=== PATIENT | female | born 1980 | race Caucasian/White ===

== ENCOUNTER 2016-12-23 14:19 | Emergency (ER) | payer OTHER ==
[~2016-12-23] VITALS: Ht 170.2 cm; Wt 111.6 kg
[2016-12-23 14:24] VITALS: BP 115/78; PULSE 104; RESP 17; TEMP 98.8; O2SAT 98
[2016-12-23 14:35] VITALS: BP 115/78; PULSE 104; RESP 16; TEMP 98.8; O2SAT 98
[2016-12-23] MEDS ORDERED: DEPO150I IM (14:39)
--- NOTE | 2016-12-23 15:11 | PD ---
HPI Chief Complaint: Back/ Neck Pain or Injury Time Seen by Provider: 14:59 Travel History International Travel<30 days: No Contact w/Intl Traveler<30days: No Traveled to known affect area: No History of Present Illness HPI 36-year-old female presents emergency department for evaluation of low back pain. Patient denies injury. Patient reports history of chronic low back pain. She reports his pain is similar. She reports she awoke last night as she rolled over in bed and felt pain in the back. The pain worsened today when she attempted to mow the lawn prompting her visit to come into the ER. She denies fever, chills, incontinence, saddle anesthesia, numbness/tingling/ weakness in lower extremities. She reports the pain is localized to the low back, nonradiating, constant. Pain is worse with movement and relieved with rest. Severity 8/10. She denies dysuria, urinary frequency or urgency. PFSH Past Medical History Anxiety: Yes Depression: Yes Tetanus Vaccination: > 5 Years Influenza Vaccination: No ?: Not LMP: on depo Ovarian Cysts: Yes (PCOS) Social History Alcohol Use: Yes (occas.) Tobacco Use: No Substance Use: No Allergies-Medications (Allergen,Severity, Reaction): Coded Allergies: Penicillins (Verified Allergy, Intermediate, rash, 12/23/16) Reported Meds & Prescriptions Reported Meds & Active Scripts Active Reported Depo-Provera Inj (Medroxyprogesterone Inj) 150 Mg/Ml Inj 150 Mg IM Q90D Review of Systems Except as stated in HPI: all other systems reviewed are Neg General / Constitutional: No: Fever Eyes: No: Visual changes HENT: No: Headaches Cardiovascular: No: Chest Pain or Discomfort Respiratory: No: Shortness of Breath Gastrointestinal: No: Abdominal Pain Genitourinary: No: Dysuria Physical Exam Narrative GENERAL: Alert, well-appearing female in no acute distress. Patient ambulating in the room stating was uncomfortable to sit or lie on the stretcher. SKIN: Focused skin assessment warm/dry. HEAD: Atraumatic. Normocephalic. EYES: Pupils equal and round. No scleral icterus. No injection or drainage. ENT: No nasal bleeding or discharge. Mucous membranes pink and moist. NECK: Trachea midline. No JVD. CARDIOVASCULAR: Regular rate and rhythm. No murmur appreciated. RESPIRATORY: No accessory muscle use. Clear to auscultation. Breath sounds equal bilaterally. GASTROINTESTINAL: Abdomen soft, non-tender, nondistended. Hepatic and splenic margins not palpable. MUSCULOSKELETAL: No obvious deformities. No clubbing. No cyanosis. No edema. BACK: No CVA tenderness. No rash. No point tenderness on palpation of the spine. Generalized pain and tenderness to the paraspinous muscles in lumbar spine. Negative Straight leg raise. NEUROLOGICAL: Awake and alert. No obvious cranial nerve deficits. Motor grossly within normal limits. Normal speech. Out of 5 strength in lower extremities. Normal sensation. PSYCHIATRIC: Appropriate mood and affect; insight and judgment normal. Data Data Last Documented VS Vital Signs Date Time Temp Pulse Resp B/P (MAP) Pulse Ox O2 Delivery O2 Flow Rate FiO2 12/23/16 14:35 98.8 104 16 115/78 (90) 98 Orders Orders Ketorolac Inj (Toradol Inj) (12/23/16 15:15) Orphenadrine Inj (Norflex Inj) (12/23/16 15:15) [facility] Medical Decision Making Medical Screen Exam Complete: Yes Emergency Medical Condition: Yes Differential Diagnosis Lumbar strain, herniated disc, Narrative Course 36-year-old female presents emergency department for evaluation of low back pain. Patient's history chronic back pain. She reports while rolling over in bed last night she twisted the back. She denies fever, incontinence, saddle anesthesia, numbness/tingling/weakness in the extremities. Patient's physical exam is reassuring. She has a normal neurologic exam. Patient was given Toradol and Norflex with symptom improvement. Patient be discharged home with instructions to continue Motrin 800 and prescribed muscle relaxers. She is a follow-up appointment with her primary doctor on Tuesday. Diagnosis Primary Impression: Low back pain Qualified Codes: M54.5 - Low back pain Referrals: Primary Care Physician Additional Instructions: Continue to take Motrin 800 mg by mouth every 6-8 hours as needed for pain. Take a muscle relaxer as needed for muscle spasms and stiffness. Keep your follow-up appointment with your primary doctor on Tuesday. Return to the emergency department if he developed new or worsening symptoms. Scripts Methocarbamol (Robaxin) 750 Mg Tab 750 MG PO TID for Muscle Spasm, #15 TAB 0 Refills Prov: Lois Babcock 12/23/16 Disposition: 01 DISCHARGE HOME Condition: Stable Lois Babcock Dec 23, 2016 15:11
[2016-12-23] MEDS ORDERED: ORPHENADRINE INJ 60 MG/2 ML AMP IM ONE (15:15)
[2016-12-23] MEDS ORDERED: KETOROLAC TROMETHAMINE 60 MG/2 ML (IM) VIAL IM ONE (15:15)
[2016-12-23] MEDS ORDERED: ROBA750T PO (16:09)
== END 2016-12-23 16:28 | disposition home or self-care (01) ==
LOC: PHEFT 14:19
DX: M54.5 Low back pain (principal); G89.29 Other chronic pain; E28.2 Polycystic ovarian syndrome
CPT/HCPCS: 96372; 99284; J1885; J2360